=== PATIENT | female | born 1930 | race Caucasian/White ===

== ENCOUNTER 2017-08-14 09:07 | Outpatient (CLI) | payer MEDICARE, BC | END 2017-08-14 23:59 | disposition home or self-care (01) | LOC: WOU 09:07 | PROVIDERS: ATTEND Specialist | DX: L59.8 Other specified disorders of the skin and subcutaneous tissue related to radiation (principal); Y84.2 Radiological procedure and radiotherapy as the cause of abnormal reaction of the patient, or of later complication, without mention of misadventure at the time of the procedure; Y78.1 Therapeutic (nonsurgical) and rehabilitative radiological devices associated with adverse incidents; Y92.89 Other specified places as the place of occurrence of the external cause; Z79.01 Long term (current) use of anticoagulants; Z79.82 Long term (current) use of aspirin; C44.42 Squamous cell carcinoma of skin of scalp and neck | CPT/HCPCS: 87070-TC; 87075-TC; A6402; G0463 ==

== ENCOUNTER 2017-08-19 15:00 | Outpatient (CLI) | payer MEDICARE, BC | END 2017-08-19 23:59 | disposition home or self-care (01) | LOC: WOU 15:00 | PROVIDERS: ATTEND Surgery | DX: L59.8 Other specified disorders of the skin and subcutaneous tissue related to radiation (principal); C44.42 Squamous cell carcinoma of skin of scalp and neck; Z87.891 Personal history of nicotine dependence; I48.91 Unspecified atrial fibrillation; Z95.810 Presence of automatic (implantable) cardiac defibrillator; Z79.01 Long term (current) use of anticoagulants; I10 Essential (primary) hypertension | CPT/HCPCS: 11043; A6402 ==

== ENCOUNTER 2017-08-21 09:20 | Outpatient (CLI) | payer MEDICARE, BC | END 2017-08-21 23:59 | disposition home health service (06) | LOC: WOU 09:20 | PROVIDERS: ATTEND Specialist | DX: L59.8 Other specified disorders of the skin and subcutaneous tissue related to radiation (principal); I10 Essential (primary) hypertension; S01.00XD Unspecified open wound of scalp, subsequent encounter; L08.9 Local infection of the skin and subcutaneous tissue, unspecified; X58.XXXD Exposure to other specified factors, subsequent encounter; C44.621 Squamous cell carcinoma of skin of unspecified upper limb, including shoulder; C44.42 Squamous cell carcinoma of skin of scalp and neck; I48.91 Unspecified atrial fibrillation; Z95.810 Presence of automatic (implantable) cardiac defibrillator; Z79.01 Long term (current) use of anticoagulants; Z87.891 Personal history of nicotine dependence | CPT/HCPCS: A6402; G0463 ==

== ENCOUNTER 2018-06-12 17:36 | Emergency (ER) | payer MEDICARE, BC ==
[~2018-06-12] VITALS: Ht 177.8 cm; Wt 74.8 kg
--- NOTE | 2018-06-12 18:30 | NUR ---
PT PRESENTED TO THE ER WITH A C/O LLE REDNESS, EDEMA, WARM TO THE TOUCH. PT DENIES PAIN AT THIS TIME. PT STATED THAT SHE WAS ACROSS THE STREET AT THE DERMATOLOGISTS OFFICE WHO WHEELED HER OVER IN A WC TO R/O THROMBOPHLEBITIS. PT IS AA&O X4. NAD NOTED. PT STATED THAT SHE HAS A HX OF SKIN CANCER AND HAS SLIGHT PAIN ON HER CALF THAT IS EDEMATOUS.
--- NOTE | 2018-06-12 18:35 | NUR ---
DR. CHRISTENSEN IS AT THE BEDSIDE.
[2018-06-12 19:13] LABS: BASOPHILS % (AUTO) 0.3 % (0.0-2.0); EOSINOPHILS % (AUTO) 2.5 % (0.0-6.0); HEMATOCRIT 40 % (33-45); HEMOGLOBIN 13.6 g/dL (11.5-14.8); LYMPHOCYTES # (AUTO) 1.1 /CMM (0.8-4.8); LYMPHOCYTES % (AUTO) 9.8 % (20.0-44.0); MEAN CORPUSCULAR HGB CONC 34 g/dl (31.0-36.0); MEAN CORPUSCULAR VOLUME 91 fL (82-100); MONOCYTES # (AUTO) 0.9 /CMM (0.1-1.30); MONOCYTES % (AUTO) 7.7 % (2.0-12.0); NEUTROPHILS # (AUTO) 8.9 /CMM (1.8-8.9); NEUTROPHILS % (AUTO) 79.7 % (43.0-81.0); PLATELET COUNT (AUTO) 122 /CMM (150-450); RED BLOOD CELL COUNT(AUTO) 4.42 MIL/uL (4.0-5.2); WHITE BLOOD COUNT (AUTO) 11.1 K/uL (4.3-11.0)
[2018-06-12 19:24] LABS: CALCIUM, SERUM 9.5 mg/dL (8.5-10.1); CARBON DIOXIDE 25 mmol/L (21-32); CHLORIDE 102 mmol/L (98-107); CREATININE 1.3 mg/dL (0.6-1.3); GLUCOSE 120 mg/dL (74-106); SODIUM SERUM 137 mmol/L (136-145); UREA NITROGEN, BLOOD 20 mg/dL (7-18)
[2018-06-12] MEDS ORDERED: LIDOCAINE /MPF 1% VIAL 5 ML VIAL ONE (19:49)
[2018-06-12] MEDS ORDERED: CEFTRIAXONE 1 G VIAL ONE (19:49)
[2018-06-12] MEDS ORDERED: IBUPROFEN 400 MG TABLET ONE (19:50)
[2018-06-12] MEDS ORDERED: IBUPROFEN 400 MG TABLET PO ONE (20:00)
[2018-06-12] MEDS ORDERED: CEFTRIAXONE 1 G VIAL IM ONE (20:00)
[2018-06-12 20:07] VITALS: BP 136/78
== END 2018-06-12 20:07 | disposition home or self-care (01) ==
LOC: ER 17:42
DX: L03.116 Cellulitis of left lower limb (principal); I80.3 Phlebitis and thrombophlebitis of lower extremities, unspecified; I48.91 Unspecified atrial fibrillation; I10 Essential (primary) hypertension; Z85.828 Personal history of other malignant neoplasm of skin
CPT/HCPCS: 36415; 80048; 85025; 85730; 93971; 96372; 99284; J0696; J3490